=== PATIENT | female | born 1990 | race American Indian/Alaskan Native ===

== ENCOUNTER 2021-06-02 10:42 | Emergency (ER) | payer SELFPAY ==
[2021-06-02] MEDS ORDERED: DICYCLOMINE 20 MG TAB PO ONE (12:47)
[2021-06-02] MEDS ORDERED: ONDANSETRON 4 MG ODT TAB PO ONE (12:47)
[2021-06-02 13:50] LABS: Bilirubin,Urine NEG (Negative); Blood,Urine NEG (Negative); Color,Urine Yellow (Yellow); Mucus,Urine FEW /HPF; Protein,Urine <15 mg/dL mg/dL (Negative); RBC,Urine < 1.0 /HPF (0.0-6.0); Urobilinogen,Urine < 2.0 mg/dL (<2.0)
[2021-06-02 13:53] LABS: HCG Qualitative,Urine Negative (Negative)
--- NOTE | 2021-06-02 13:59 | Emergency Department Report ---
ED N/V/D HPI - General Chief complaint: Abdominal Pain Stated complaint: STOMACH ISSUE Time Seen by Provider: 06/02/21 12:29 Source: patient Mode of arrival: Ambulatory Limitations: No Limitations - History of Present Illness Initial comments: 30-year-old black female with a past medical history of diabetes, depression, anxiety, and PTSD presents to the emergency department for evaluation of nausea and vomiting that started early this a.m. She states that she ate some volume of sausage before going to bed last night and then she was awakened at 3 AM with severe nausea, vomiting, and diarrhea. She states that she has intermittent abdominal cramping. She denies fever, dysuria, and vaginal discharge. MD complaint: nausea, vomiting, diarrhea, abdominal pain -: Sudden, hour(s) Associated Abdominal Pain: Yes Location: diffuse Radiation: none Severity: moderate Pain Scale: 5 Quality: cramping Consistency: intermittent Context: possible food poisoning Associated Symptoms: nausea/vomiting. denies: myalgias, chest pain, cough, diaphoresis, fever/chills, headaches, loss of appetite, malaise, rash, dysuria, shortness of breath, syncope, weakness - Related Data Previous Rx's Medication Instructions Recorded Last Taken Type Dicyclomine [Bentyl] 20 mg PO QID PRN #21 tablet 06/02/21 Unknown Rx Ondansetron [Zofran Odt] 4 mg PO Q8HR PRN #12 tab.rapdis 06/02/21 Unknown Rx Allergies Allergy/AdvReac Type Severity Reaction Status Date / Time amoxicillin Allergy Mild Hives Verified 06/02/21 10:56 lidocaine Allergy Hives Verified 06/02/21 10:56 metformin AdvReac Diarrhea Verified 06/02/21 10:56 ED Review of Systems ROS: Stated complaint: STOMACH ISSUE Other details as noted in HPI Comment: All other systems reviewed and negative Constitutional: denies: chills, fever Respiratory: denies: cough, shortness of breath, SOB with exertion, SOB at rest Cardiovascular: denies: chest pain, palpitations, dyspnea on exertion Genitourinary: denies: urgency, dysuria, frequency, hematuria, discharge Musculoskeletal: denies: back pain Skin: denies: rash, lesions ED Past Medical Hx - Past Medical History Previous Medical History?: No - Surgical History Past Surgical History?: No - Medications Home Medications: Home Medications Medication Instructions Recorded Confirmed Last Taken Type Dicyclomine [Bentyl] 20 mg PO QID PRN #21 tablet 06/02/21 Unknown Rx Ondansetron [Zofran Odt] 4 mg PO Q8HR PRN #12 tab.rapdis 06/02/21 Unknown Rx ED Physical Exam - General Limitations: No Limitations General appearance: alert, in no apparent distress - Head Head exam: Present: atraumatic, normocephalic - Eye Eye exam: Present: normal appearance. Absent: conjunctival injection - Neck Neck exam: Present: normal inspection. Absent: tenderness, lymphadenopathy - Respiratory Respiratory exam: Present: normal lung sounds bilaterally. Absent: respiratory distress, wheezes, rales, rhonchi, stridor, chest wall tenderness - Cardiovascular Cardiovascular Exam: Present: tachycardia, normal heart sounds - GI/Abdominal GI/Abdominal exam: Present: soft, normal bowel sounds. Absent: distended, tenderness, guarding, rebound, rigid - Extremities Exam Extremities exam: Present: normal inspection, normal capillary refill. Absent: pedal edema, joint swelling, calf tenderness - Back Exam Back exam: Present: normal inspection. Absent: CVA tenderness (R), CVA tenderness (L) - Neurological Exam Neurological exam: Present: alert, oriented X3, normal gait - Psychiatric Psychiatric exam: Present: normal affect, normal mood - Skin Skin exam: Present: warm, dry, intact, normal color ED Course Vital Signs 06/02/21 06/02/21 10:52 14:36 Temperature 98.7 F 96.2 F L Pulse Rate 105 H 74 Respiratory 20 16 Rate Blood Pressure 124/88 135/87 [Right] O2 Sat by Pulse 98 98 Oximetry ED Medical Decision Making - Medical Decision Making 30-year-old black female with a past medical history of diabetes, depression, anxiety, and PTSD presents to the emergency department for evaluation of nausea and vomiting that started early this a.m. She states that she ate some volume of sausage before going to bed last night and then she was awakened at 3 AM with severe nausea, vomiting, and diarrhea. She states that she has intermittent abdominal cramping. She denies fever, dysuria, and vaginal discharge. Symptoms resolved after medication, and patient states that she feels much josé luis r. Complaint and exam consistent with gastroenteritis. Patient will be discharged home with Zofran and Bentyl to use as needed. She was advised to take medications as prescribed and follow-up with primary care provider if worsening symptoms. She verbalized understanding of and agreement with plan of care. Critical care attestation.: If time is entered above; I have spent that time in minutes in the direct care of this critically ill patient, excluding procedure time. ED Disposition Clinical Impression: Gastroenteritis Disposition: 01 HOME / SELF CARE / HOMELESS Is pt being admited?: No Does the pt Need Aspirin: No Condition: Stable Instructions: Viral Gastroenteritis, Adult, [id number], Food Choices to Help Relieve Diarrhea, Adult, Abdominal Pain (ED) Additional Instructions: Take medications as prescribed. follow up with primary care provider if worsening symptoms. Prescriptions: Dicyclomine [Bentyl] 20 mg PO QID PRN #21 tablet PRN Reason: Pain, Moderate (4-6) Ondansetron [Zofran Odt] 4 mg PO Q8HR PRN #12 tab.rapdis PRN Reason: Nausea And Vomiting Referrals: STEPHANIE POE MD [Primary Care Provider] - 3-5 Days MAGALYS MURPHY MD [Referring] - 3-5 Days Forms: Work/School Release Form(ED) Time of Disposition: 13:59
[2021-06-02 14:38] VITALS: BP 135/87
== END 2021-06-02 14:36 | disposition home or self-care (01) ==
LOC: ED 10:42
DX: K52.9 Noninfective gastroenteritis and colitis, unspecified (principal); Z88.0 Allergy status to penicillin; Z88.8 Allergy status to other drugs, medicaments and biological substances
CPT/HCPCS: 81001; 81025; 82962; 99283; J3490; Q0162

== ENCOUNTER 2021-06-02 19:50 | Emergency (ER) | payer SELFPAY ==
[2021-06-02] MEDS ORDERED: IBUPROFEN 800 MG TAB PO ONE (22:46)
--- NOTE | 2021-06-02 22:51 | Emergency Department Report ---
ED General Adult HPI - General Chief complaint: Anxiety Stated complaint: BACK PAIN/HEADACHE/ANXIETY Source: patient Mode of arrival: Ambulatory Limitations: No Limitations - History of Present Illness Initial comments: Patient 30-year-old female with history of GERD and anxiety with depression who presents for back pain and headache rated at 4/10 times today. Patient states stressful situation at home with which exacerbated anxiety initiating headache and back pain. Patient denies fevers chills no nausea no vomiting no SI or HI. Symptoms are exacerbated by stress. Symptoms are relieved by nothing tried. Patient denies other symptoms at this time no abdominal pain nausea or vomiting no GERD symptoms at this time. - Related Data Previous Rx's Medication Instructions Recorded Last Taken Type Dicyclomine [Bentyl] 20 mg PO QID PRN #21 tablet 06/02/21 Unknown Rx Ondansetron [Zofran Odt] 4 mg PO Q8HR PRN #12 tab.rapdis 06/02/21 Unknown Rx Ibuprofen [Motrin 800 MG tab] 800 mg PO Q8HR PRN #30 tablet 06/03/21 Unknown Rx hydrOXYzine HCL [Atarax] 25 mg PO Q8HR PRN #21 tablet 06/03/21 Unknown Rx Allergies Allergy/AdvReac Type Severity Reaction Status Date / Time amoxicillin Allergy Mild Hives Verified 06/02/21 10:56 lidocaine Allergy Hives Verified 06/02/21 10:56 metformin AdvReac Diarrhea Verified 06/02/21 10:56 ED Review of Systems ROS: Stated complaint: BACK PAIN/HEADACHE/ANXIETY Other details as noted in HPI Constitutional: denies: chills, fever Eyes: denies: eye pain, eye discharge, vision change ENT: denies: ear pain, throat pain Respiratory: denies: cough, shortness of breath, wheezing Cardiovascular: denies: chest pain, palpitations Endocrine: no symptoms reported Gastrointestinal: denies: abdominal pain, nausea, diarrhea Genitourinary: denies: urgency, dysuria, discharge Musculoskeletal: back pain Skin: denies: rash, lesions Neurological: headache. denies: weakness, numbness, paresthesias, confusion, vertigo Psychiatric: denies: anxiety, depression Hematological/Lymphatic: denies: easy bleeding, easy bruising ED Past Medical Hx - Past Medical History Hx GERD: Yes Hx Psychiatric Treatment: Yes (Anxiety, Depression) - Medications Home Medications: Home Medications Medication Instructions Recorded Confirmed Last Taken Type Dicyclomine [Bentyl] 20 mg PO QID PRN #21 tablet 06/02/21 Unknown Rx Ondansetron [Zofran Odt] 4 mg PO Q8HR PRN #12 tab.rapdis 06/02/21 Unknown Rx Ibuprofen [Motrin 800 MG tab] 800 mg PO Q8HR PRN #30 tablet 06/03/21 Unknown Rx hydrOXYzine HCL [Atarax] 25 mg PO Q8HR PRN #21 tablet 06/03/21 Unknown Rx ED Physical Exam - General Limitations: No Limitations General appearance: alert, in no apparent distress - Head Head exam: Present: normocephalic, normal inspection - Eye Eye exam: Present: PERRL, EOMI. Absent: conjunctival injection, nystagmus Pupils: Present: normal accommodation - ENT ENT exam: Present: normal exam, TM's normal bilaterally - Neck Neck exam: Present: normal inspection, full ROM. Absent: tenderness, meningismus, lymphadenopathy, thyromegaly - Respiratory Respiratory exam: Present: normal lung sounds bilaterally. Absent: respiratory distress, wheezes, stridor, chest wall tenderness - Cardiovascular Cardiovascular Exam: Present: regular rate, normal rhythm, normal heart sounds. Absent: systolic murmur, diastolic murmur, rubs, gallop - GI/Abdominal GI/Abdominal exam: Present: soft, normal bowel sounds. Absent: distended, tenderness, guarding, rebound, rigid, bruit, hernia - Rectal Rectal exam: Present: deferred - Extremities Exam Extremities exam: Present: normal inspection, full ROM, normal capillary refill. Absent: tenderness - Back Exam Back exam: Present: normal inspection, full ROM. Absent: CVA tenderness (R), CVA tenderness (L) - Neurological Exam Neurological exam: Present: alert, oriented X3, CN II-XII intact, normal gait, reflexes normal. Absent: motor sensory deficit - Expanded Neurological Exam Expanded Patient oriented to: Present: person, place, time Speech: Present: fluid speech Motor strength exam: RUE: 5, LUE: 5, RLE: 5, LLE: 5 Best Eye Response ([place]): (4) open spontaneously Best Motor Response ([place]): (6) obeys commands Best Verbal Response ([place]): (5) oriented Tiana Total: 15 - Psychiatric Psychiatric exam: Present: normal affect, normal mood. Absent: homicidal ideation, suicidal ideation - Skin Skin exam: Present: warm, dry, intact, normal color. Absent: rash ED Course Vital Signs 06/02/21 06/03/21 19:59 02:03 Temperature 98.8 F Pulse Rate 120 H 104 H Respiratory 12 12 Rate Blood Pressure 117/72 Blood Pressure 140/88 [Right] O2 Sat by Pulse 97 100 Oximetry ED Medical Decision Making - Medical Decision Making Back pain is resolved. Vital signs improved plan DC to home with prescription NSAIDs as needed pain. Patient will follow-up with mental health counselor in a.m. Patient verbalized agreement and understanding with discharge plan. Patient will be DC'd to self in stable condition at this time. There is no SI, there is no HI. Patient requesting to see mental health counselor for referral to mental health services. And social work for housing referral. Critical care attestation.: If time is entered above; I have spent that time in minutes in the direct care of this critically ill patient, excluding procedure time. ED Disposition Clinical Impression: Stress Back pain Qualifiers: Back pain location: low back pain Chronicity: acute Back pain laterality: bi lateral Sciatica presence: without sciatica Qualified Code(s): M54.50 - Low back pain, unspecified Disposition: 01 HOME / SELF CARE / HOMELESS Is pt being admited?: No Does the pt Need Aspirin: No Condition: Stable Instructions: Acute Back Pain, Adult, Managing Anxiety, Adult Additional Instructions: Take medication as prescribed, follow-up with your doctor in 2 to 3 days. Follow[facility]up with [facility]. Follow-up with psych counselor and manager social services as needed. Prescriptions: hydrOXYzine HCL [Atarax] 25 mg PO Q8HR PRN #21 tablet PRN Reason: Anxiety Ibuprofen [Motrin 800 MG tab] 800 mg PO Q8HR PRN #30 tablet PRN Reason: pain Referrals: [facility] [Outside] - 3-5 Days Forms: Work/School Release Form(ED) Time of Disposition:
[2021-06-03 04:33] LABS: Basophils % (Auto) 0.3 % (0.0-1.8); Eosinophils # (Auto) 0.1 K/mm3 (0.0-0.4); Eosinophils % (Auto) 0.7 % (0.0-4.3); Hematocrit 33.5 % (30.3-42.9); Hemoglobin 10.6 gm/dl (10.1-14.3); Lymphocytes # (Auto) 3.7 K/mm3 (1.2-5.4); Mean Corpuscular HGB Conc 32 % (30-34); Mean Corpuscular Volume 84 fl (79-97); Monocytes # (Auto) 0.4 K/mm3 (0.0-0.8); Monocytes % (Auto) 5.1 % (0.0-7.3); Platelet Count 388 K/mm3 (140-440); Red Blood Count 3.99 M/mm3 (3.65-5.03); Red Cell Distribution Width 14.9 % (13.2-15.2)
[2021-06-03 04:53] LABS: Alanine Aminotransferase 26 units/L (7-56); BUN/Creatinine Ratio 11; Blood Urea Nitrogen 10 mg/dL (7-17); Calcium 9.1 mg/dL (8.4-10.2); Hemolysis Index 8
[2021-06-03] MEDS ORDERED: IBUPROFEN 800 MG TAB PO ONE (08:00)
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
[2021-06-03] MEDS ORDERED: hydrOXYzine PAMOATE 25 MG CAP PO PRN (11:00)
--- NOTE | 2021-06-03 11:25 | Emergency Department Report ---
Blank Doc - Documentation Documentation: 30-year-old female currently on a 1013 for suicidal ideation. As per lab review glucose is 310 without signs of anion gap acidosis. Patient endorses a history of "diet-controlled" diabetes. She has been prescribed Metformin the past with vomiting as a side effect. Accu-Chek requested. Serum hCG, UDS, UA, and blood alcohol have been added and pending. Patient states she did provide a urine sample however, this is not reflected in ER results therefore repeat collection requested. Psychiatric meds initiated by the health spanish interpreter
[2021-06-03] MEDS: ARIPiprazole 5 MG TAB PO SCH (11:26)
[2021-06-03 13:51] LABS: Bilirubin,Urine NEG (Negative); Blood,Urine NEG (Negative); Color,Urine Yellow (Yellow); Mucus,Urine FEW /HPF; Protein,Urine <15 mg/dL mg/dL (Negative); Urobilinogen,Urine < 2.0 mg/dL (<2.0)
[2021-06-03 13:58] LABS: Amphetamine Screen,Urine Negative; Benzodiazepines Screen,Urine Negative; Cocaine Screen,Urine Negative; Methadone Screen,Urine Negative; Opiate Screen,Urine Negative
[2021-06-03] MEDS ORDERED: LORazepam 2 MG/ML VIAL IM PRN (14:08)
[2021-06-03] MEDS ORDERED: diphenhydrAMINE 50 MG/ML VIAL IM ONE (14:10)
[2021-06-03] MEDS ORDERED: diphenhydrAMINE 50 MG/ML VIAL ONE (14:13)
[2021-06-03 14:34] LABS: Cannabinoid Screen,Urine Positive
[2021-06-03] MEDS ORDERED: ZIPRASIDONE MESYLATE 20 MG VIAL IM ONE (19:12)
[2021-06-03] MEDS ORDERED: MELATONIN 5 MG TAB PO PRN (22:00)
[2021-06-03] MEDS ORDERED: MIRTAZAPINE 15 MG TAB PO SCH (22:00)
[2021-06-04] MEDS: ARIPiprazole 5 MG TAB PO SCH (10:24)
[2021-06-04] MEDS ORDERED: IBUPROFEN 800 MG TAB PO ONE (12:02)
[2021-06-04 13:17] VITALS: BP 110/61
--- NOTE | 2021-06-04 16:16 | Emergency Department Report ---
Blank Doc - Documentation Documentation: This patient was initially admitted to the ED with SI and was seen by psychiatry who deemed her to be on 1013. She reports some anxiety and was given ativan 1mg and Benadryl 50 mg. Pt noticed resting shortly after the treatment.
== END 2021-06-04 13:14 ==
LOC: EEVIPCON 19:50 → ED 19:50
DX: F43.9 Reaction to severe stress, unspecified (principal); M54.50 Low back pain, unspecified; Z20.822 Contact with and (suspected) exposure to COVID-19; Z79.899 Other long term (current) drug therapy; Z88.0 Allergy status to penicillin; Z88.8 Allergy status to other drugs, medicaments and biological substances
CPT/HCPCS: 36415; 80053; 80307; 81001; 82962; 84703; 85025; 96372; 99285; J1200; J2060; J3486; U0003; 80320; 99284; G0480